=== PATIENT | female | born 1955 | race Caucasian/White ===

== ENCOUNTER 2018-06-16 16:54 | Observation (INO) ==
[2018-06-16] MEDS ORDERED: Isovue-370 500 ML INFUS..BTL IV ONE (18:30)
[2018-06-16 18:54] LABS: Basophils # 0.1 K/mcL (0.0-0.2); Basophils % 0.5 %; Eosinophils # 0.2 K/mcL (0.0-0.6); Eosinophils % 1.8 %; Hemoglobin 10.6 g/dL (11.5-15.4); Immature Granulocytes % 0.5 % (0-4); Lymphocytes # 2.2 K/mcL (0.6-4.6); Lymphocytes % 21.1 %; Mean Corpuscular HGB Conc 32.1 g/dL (31.6-35.5); Mean Corpuscular Hemoglobin 30.5 pg (28.0-33.3); Mean Corpuscular Volume 95.1 fL (83.0-100.0); Mean Platelet Volume 9.8 fL (9.4-12.4); Monocytes # 0.9 K/mcL (0.0-1.3); Monocytes % 8.8 %; Platelet Count 289 K/mcL (140-400); Red Blood Count 3.47 M/mcL (3.82-4.97); Red Cell Distribution Width 13.6 % (11.5-14.5); Segmented Neutrophils % 67.3 %
[2018-06-16 19:02] LABS: INR 1.1; Prothrombin Time 11.9 Seconds (9.4-12.1)
[2018-06-16 19:14] LABS: Calcium 8.7 mg/dL (8.6-10.3); Potassium 3.8 mEq/L (3.5-5.1)
[2018-06-16 19:19] LABS: Troponin I 0.05 ng/mL (< 0.04)
[2018-06-16] MEDS ORDERED: Aspirin 325 MG TABLET PO ONE (19:23)
--- NOTE | 2018-06-16 19:23 | Emergency Department Note ---
Disposition Clinical Impression: Chest pain Qualifiers: Chest pain type: unspecified Qualified Code(s): R07.9 - Chest pain, unspecified Disposition: Admitted As Inpatient Condition: Good Referrals: Nahun Cassidy DO [Primary Care Provider] - Forms: ED Satisfaction Letter Time of Disposition: 20:56 General Adult HPI - General Chief complaint: ED Extremity Problem,Nontraumatic Stated complaint: RIght knee pain/sob/kavin/low O2 sat Time Seen by Provider: 06/16/18 18:06 Source: patient Mode of arrival: ambulatory Limitations: no limitations Nursing Notes Reviewed: Yes Vital Signs Reviewed: Yes - History of Present Illness HPI Narrative: 62 year old female chaunceynets ot the ED with complaints of RLE pain and most recently had surgery for a replacement recently and states that she has ahd increased swelling and aheaviness in her chest. Daryn states that in triage she was hypoxic to 70s and that this happened to her during her evlaution for her knee replacement and she required 5LNC at that time. She does not have COPD and does not smoke or use inhalers or supplemental ozygenation at home. Daryn states that the heaviness is inthe mid chest and does not radiate. Daryn dnies cough or fevers or hemoptypsis. RLE swelling is moderate s/p surgery although homans (-) Pain Scale: 10 - Related Data Home Medications Medication Instructions Recorded Confirmed ALPRAZolam [Xanax 0.5 MG Tablet] 0.5 mg PO TID PRN 04/27/16 10/22/16 DULoxetine [Cymbalta] 30 mg PO DAILY 04/27/16 10/22/16 Lisinopril [Zestril] 40 mg PO DAILY 04/27/16 10/22/16 cloNIDine HCl [CloNIDine HCl] 0.1 mg PO BID PRN 04/27/16 10/22/16 Amitriptyline [Elavil] 25 - 50 mg PO HS 10/22/16 10/22/16 Omeprazole [PriLOSEC] 20 mg PO DAILY 10/22/16 10/22/16 Previous Rx's Medication Instructions Recorded Clindamycin [Cleocin] 150 mg PO Q6HR #7 capsule 10/22/16 Allergies Allergy/AdvReac Type Severity Reaction Status Date / Time No Known Allergies Allergy Verified 04/07/17 10:35 Constitutional: Denies: fever, chills, weakness, weight change Eyes: Denies: eye pain, eye discharge, vision change ENT ED: Denies: ear pain, throat pain, dental pain, hearing loss, epistaxis, congestion, dysphagia Cardiovascular: Reports: chest pain. Denies: palpitations, dyspnea on exertion, edema, syncope Respiratory: Denies: cough, dyspnea, wheezes, hemoptysis, stridor Gastrointestinal: Denies: abdominal pain, nausea, vomiting, diarrhea, constipation, hematemesis, melena, hematochezia Genitourinary: Denies: dysuria, frequency, hematuria, discharge Musculoskeletal: Reports: as per HPI, other (leg pain and swelling). Denies: back pain, neck pain, arthralgia, myalgia Integumentary: Denies: rash, abrasion, lesions Neurological: Denies: headache, weakness, numbness, paresthesias, confusion, abnormal gait, vertigo Psychiatric: Denies: anxiety, depression, suicidal thoughts, homicidal thoughts, auditory hallucinations, visual hallucinations Endocrine: Denies: fatigue Hematological/Lymphatic: Denies: easy bleeding, easy bruising Allergic/Immunologic: Denies: facial swelling, urticaria Past Medical History - Past Medical History Medical history: Reports: fibromyalgia, GERD, hypertension, migraine Surgical history: Reports: hysterectomy, orthopedic, other Psychiatric history: Reports: depression - Social History Smoking Status: Never smoker Smokeless Tobacco Status: No Alcohol use: Reports: none Drug use: Reports: none Physical Exam - General Limitations: physical limitation General appearance: alert, in no apparent distress - Head Head exam: atraumatic, normocephalic, normal inspection - Eye Eye exam: Present: normal appearance, PERRL, EOMI - Expanded Eye Exam Pupils: Bilateral: reactive - ENT ENT exam: normal exam, normal oropharynx, mucous membranes moist - Expanded ENT Exam External ear exam: Present: normal external inspection Mouth exam: Present: normal external inspection Teeth exam: Present: normal inspection Throat exam: Present: normal inspection - Neck Neck exam: Present: normal inspection, full ROM, trachea midline - Chest Chest inspection: Present: normal inspection, symmetric chest wall rise - Respiratory Respiratory exam: Present: normal lung sounds bilaterally - Cardiovascular Cardiovascular exam: Present: regular rate, normal rhythm, normal heart sounds - Abdominal Exam Abdominal exam: Present: soft, Non-Tender. Absent: tenderness, distention, guarding, rebound, rigidity - Extremities Exam Extremities exam: Present: normal inspection, full ROM. Absent: tenderness, pedal edema - Expanded Upper Extremity Exam Shoulder exam: Present: normal inspection, full ROM Arm exam: Present: normal inspection, full ROM Elbow exam: Present: normal inspection, full ROM Forearm/Wrist exam: Present: normal inspection, full ROM Hand exam: Present: normal inspection, full ROM Vascular exam: Normal: capillary refill, radial pulse - Expanded Lower Extremity Exam Hip/Pelvis exam: Present: normal inspection, full ROM Upper leg exam: Present: normal inspection, full ROM 1 - swollen, post surgical scar Knee exam: Present: normal inspection, full ROM Lower leg exam: Present: normal inspection, full ROM Ankle exam: Present: normal inspection, full ROM Foot/toe exam: Present: normal inspection, full ROM Neurovascular/Tendon exam: Absent: motor deficit, sensory deficit, tendon deficit - Back Exam Back exam: Present: normal inspection, full ROM. Absent: tenderness - Neurological Exam Neurological exam: Present: alert, oriented X3 - Expanded Neurological Exam Patient oriented to: Present: person, place, time Coma Scale Eye Opening: Spontaneous Coma Scale Motor Response: Obeys Commands Coma Scale Verbal Response: Oriented Coma Scale Total: 15 - Psychiatric Psychiatric exam: Present: normal affect, normal mood - Skin Skin exam: Present: warm, dry, intact, normal color Course Course Narrative: we will do a cardiac workup and US with CTA chest to rule out PE - Reevaluation(s) Reevaluation #1: updated patinet and they are agreeable to plan Time: 20:56 - Consultations Consultation #1: dsicussed case with Dr. ontiveros and he accepts jimmienet to his service Time: 20:56 Vital Signs Temperature 98.7 F 06/16/18 17:37 Pulse Rate 97 06/16/18 17:37 Respiratory Rate 16 06/16/18 17:37 Blood Pressure 97/65 06/16/18 17:37 O2 Sat by Pulse Oximetry 94 06/16/18 17:37 Temperature 98.7 F 06/16/18 17:37 Pulse Rate 97 06/16/18 17:37 Respiratory Rate 20 06/16/18 18:35 Blood Pressure 97/65 06/16/18 17:37 O2 Sat by Pulse Oximetry 96 06/16/18 18:35 Oxygen Delivery Oxygen Delivery Room Air Medical Decision Making - Medical Records Medical records reviewed: Yes I reviewed the patient's medical records. - Lab Data Lab results reviewed: Yes I reviewed the patient's lab results. Result diagrams: 06/16/18 18:35 06/16/18 18:35 Lab Results 06/16/18 06/16/18 06/16/18 Range/Units 18:35 18:35 18:35 WBC 10.4 (4.3-11.1) K/mcL RBC 3.47 L (3.82-4.97) M/mcL Hgb 10.6 L (11.5-15.4) g/dL Hct 33.0 L (35.3-44.9) % MCV 95.1 (83.0-100.0) fL MCH 30.5 (28.0-33.3) pg MCHC 32.1 (31.6-35.5) g/dL RDW 13.6 (11.5-14.5) % Plt Count 289 (140-400) K/mcL MPV 9.8 (9.4-12.4) fL Immature Gran % 0.5 (0-4) % Seg Neutrophils % 67.3 % Lymphocytes % 21.1 % Monocytes % 8.8 % Eosinophils % 1.8 % Basophils % 0.5 % Neutrophils # 7.0 (1.6-8.9) K/mcL Lymphocytes # 2.2 (0.6-4.6) K/mcL Monocytes # 0.9 (0.0-1.3) K/mcL Eosinophils # 0.2 (0.0-0.6) K/mcL Basophils # 0.1 (0.0-0.2) K/mcL PT 11.9 (9.4-12.1) Seconds INR 1.1 APTT 30.0 (26.0-36.0) Seconds Sodium 139 (136-145) mEq/L Potassium 3.8 (3.5-5.1) mEq/L Chloride 103 (98-107) mEq/L Carbon Dioxide 30 H (23-29) mEq/L BUN 17 (8-23) mg/dL Creatinine 1.20 (0.60-1.20) mg/dL Est GFR ( Amer) 55 L (> 60) Est GFR (Non-Af Amer) 46 L (> 60) BUN/Creatinine Ratio 14 (6-26) Glucose 98 (70-105) mg/dL Calculated Osmolality 290 (280-300) Calcium 8.7 (8.6-10.3) mg/dL Troponin I 0.05 H* (< 0.04) ng/mL - Radiology Data Radiology results reviewed: Yes I reviewed the patient's radiology results. - EKG Data EKG #1 EKG attestation: Yes I reviewed and interpreted this EKG. EKG results narrative: NSR with rate of 94. NO STEMI. St-T nonspecific abnormalities without depression or inversion, mostly flattening. no cahnge from 10/19/16. [id number]
--- NOTE | 2018-06-17 00:25 | Internal Med History&Physical ---
<Eh Chaudhary T - Last Filed: 06/17/18 03:09> Date of Encounter: 06/17/18 Time of Encounter: 00:20 Internal Medicine - H&P: HPI Chief complaint: SOB, R Knee pain Admitted From: Home History of present illness: Ms. Celeste is a 62 year old female here SOB and elevated troponinx1 of .05. Patient reports that she had knee surgery last Wed after which she experienced O2 saturation in 70-80s. She was told it was due to her pain medicatioAtns lowering her respiration. She was discharged after her O2 sats stabilized. Earlier today during a nurse visit she experienced another all in O2 sat of 70- 80s while walking for a few minutes. Patient states she has episodes of difficulty breathing while at rest. At ED today patient had an elevated troponin of 0.05 x1, however she does not report any chest pain or palpitations. Her EKG did not show any ST changes. She has significant family history of cardiovsacular disease with her mother, father, and brother having heart attacks. Patient reports she has been seen by [facility] cardiology for an episode of afib last year which converted back to sinus rthym without any intervention. She also had an echo and catheter done at that hospital. We do not currently have the reports from these hospitals. Patient reports that she did not receive a stent, is not on m etoprolol, amiodarone, or any other heart med, does not have elevated cholesterol, is not diabetic. Patient is morbidly obese. She needs to sleep elevated otherwise she has SOB, however she states her cardiolgist has never diagnosed her with CHF. Patient also denies having COPD or other lung path ology. She is a nonsmoker. Chest CT showed normal heart sillouhete and CTA did not reveal PE, however showed mild atelectasis. Patient denies recent fever, nausea, vomitting, abdominal pain, cough, recent sick contacts. Past Med Surg Social Fam HX - Past Medical History Medical history: fibromyalgia, GERD, hypertension, migraine Additional medical history: Lumbar stenosis and buldging discs Psychiatric history: depression - Past Surgical History Surgical History: hysterectomy, orthopedic, other Additional surgical history: hyst. gb. lap band - Social History Smoking Status: Never smoker Smokeless Tobacco Status: No Alcohol use: none Drug use: none - Family History Father Hx Family Cardiac Disorders: Yes (HTN) Hx Family Neuromuscular Disorders: Yes (Stroke) Mother Hx Family Cardiac Disorders: Yes (HTN) Hx Family Cancer: Yes (uterine) Hx Family Endocrine Disorder: Yes Hx Family Neurologic Disorders: Yes (stroke) Internal Medicine - H&P: Meds ALPRAZolam [Xanax 0.5 MG Tablet] 0.5 mg PO TID PRN 04/27/16 [History] Lisinopril [Zestril] 10 mg PO DAILY 04/27/16 [History] Amitriptyline [Elavil] 50 mg PO HS PRN 10/22/16 [History] Baclofen [Lioresal] 15 mg PO TID 06/16/18 [History] Cyclobenzaprine HCl 10 mg PO Q8H PRN 06/16/18 [History] Duloxetine HCl [Cymbalta] 60 mg PO DAILY 06/16/18 [History] Gabapentin [Neurontin] 300 mg PO TID 06/16/18 [History] Omeprazole [PriLOSEC] 20 mg PO DAILY 06/16/18 [History] Oxycodone HCl/Acetaminophen [Percocet 10-325 mg Tablet] 1 tab PO Q4-6H PRN 06/16/18 [History] Propranolol [Inderal] 20 mg PO DAILY 06/16/18 [History] hydroCHLOROthiazide [Hydrochlorothiazide] 12.5 mg PO DAILY 06/16/18 [History] Allergy/AdvReac Type Severity Reaction Status Date / Time No Known Allergies Allergy Verified 10/22/16 10:35 All Systems PM: A 10-system review of systems was performed and is negative for pertinent findings except as documented above in the HPI. - Constitutional Constitutional: fatigue, no chills, no fever(s) - Cardiovascular Cardiovascular ROS IM: dyspnea, dyspnea on exertion, no chest pain, no diaphoresis - Constitutional Vitals: Temp Pulse Resp BP Pulse Ox 97.9 F 96 16 118/62 98 06/16/18 21:52 06/16/18 21:52 06/16/18 21:52 06/16/18 21:52 06/16/18 21:52 General appearance: Present: A&O X 3, morbidly obese Exam: . - Head Head exam: Present: atraumatic, normal inspection - Eye Eye exam: Present: EOMI, normal appearance. Absent: conjuntiva pink - Neck Neck exam general surgery: Present: supple, trachea midline - Respiratory Respiratory exam: Present: CTAB. Absent: respiratory distress (patient on 2L oxygen) - Cardiovascular Cardiovascular exam: Present: RRR, +S1, +S2 Additional comments: No sternal tenderness upon palpation - GI/Abdominal GI/Abdominal exam: Present: soft. Absent: tenderness - Extremities Exam Extremities exam: Present: normal capillary refill, warm. Absent: mottling - Neurological Exam Neurological exam: Present: alert, altered, no focal deficits - Psychiatric Psychiatric exam: Present: normal affect - Skin Skin exam: Present: dry, intact, warm Internal Med - H&P Results - Labs CBC & Chem 7: 06/16/18 18:35 06/17/18 01:38 Labs: Short CBC 06/16/18 Range/Units 18:35 WBC 10.4 (4.3-11.1) K/mcL Hgb 10.6 L (11.5-15.4) g/dL Hct 33.0 L (35.3-44.9) % Plt Count 289 (140-400) K/mcL Neutrophils # 7.0 (1.6-8.9) K/mcL BMP 06/16/18 18:35 Sodium 139 Potassium 3.8 Chloride 103 Carbon Dioxide 30 H BUN 17 Creatinine 1.20 Glucose 98 Calcium 8.7 Cardiac Enzymes 06/16/18 Range/Units 18:35 Troponin I 0.05 H* (< 0.04) ng/mL - Impressions ITS Impressions Chest CTA 06/16/18 18:30 IMPRESSION: 1. No evidence of a pulmonary embolism or parenchymal lung infiltrate. Minimal atelectasis is noted in the right middle lobe and lingula. D/ / 06/16/2018 20:05:09 Corby Sanchez MD / [facility] Interpreting Provider: Corby Sanchez MD Chest X-Ray 06/16/18 18:33 IMPRESSION: 1. Low lung volumes. D/ / Corby Sanchez MD / Corby Sanchez MD Interpreting Provider: Corby Sanchez MD - Assessment and plan (1) Acute respiratory failure with hypoxia Current Visit: Yes Status: Acute Assessment and plan: 62 YO F presenting with multiple episodes of SOB at rest and with exertion with hypoxia following knee surgery last tue. Patient does not have any anticoagulation perscribed post-op. Patient sleeps with several pillows elevated. Has elevated troponin at ED of 0.05 with significant family history of heart disease, but has negative EKG. CTA negative for PE with negative LE doppler. Lungs were clear to auscultation and CXR shows low lung volumes but no acute lung pathology such as effusions of atelectasis that could explain low O2 Sat. Considering CHF vs [place] give patients cardiac risk factors. - echo tomorrow to check cardiac status - A1C and cholesterol tomorrow to assess more cardiac risk factors - trending troponins - DVT PPX 5000IU heparin BID - CBC and BMP tomorrow (2) Troponin level elevated Current Visit: Yes Status: Acute Assessment and plan: Troponins trending down .05 to .03. Negative EKG. Most likely due to demand ischemia. - echo tomorrow to check cardiac status - A1C and cholesterol tomorrow to assess more cardiac risk factors (3) Knee pain, right Current Visit: Yes Status: Acute Assessment and plan: Recent surgery last tue - Gave patient 5 percocet Q6 PRN for pain Qualifiers: Chronicity: acute Qualified Code(s): M25.561 - Pain in right knee - Time Spent With Patient Total time spent is greater than 50% in coordination of care (as documented) at patient's floor/unit and/or counseling patient: <Donald Machado - Last Filed: 06/17/18 07:52> Date of Encounter: 06/17/18 Internal Medicine - H&P: HPI History of present illness: Ms. Celeste is a 62 year old female All Systems PM: A 10-system review of systems was performed and is negative for pertinent findings except as documented above in the HPI. - Constitutional Vitals: Temp Pulse Resp BP Pulse Ox 98.3 F 82 16 110/74 90 06/17/18 07:11 06/17/18 07:11 06/17/18 07:11 06/17/18 07:11 06/17/18 07:11 Internal Med - H&P Results - Labs CBC & Chem 7: 06/17/18 06:02 06/17/18 01:38 Labs: Short CBC 06/16/18 06/17/18 Range/Units 18:35 06:02 WBC 10.4 9.0 (4.3-11.1) K/mcL Hgb 10.6 L 9.5 L (11.5-15.4) g/dL Hct 33.0 L 29.3 L (35.3-44.9) % Plt Count 289 253 (140-400) K/mcL Neutrophils # 7.0 6.1 (1.6-8.9) K/mcL BMP 06/16/18 06/17/18 18:35 01:38 Sodium 139 139 Potassium 3.8 3.7 Chloride 103 103 Carbon Dioxide 30 H 29 BUN 17 15 Creatinine 1.20 0.93 Glucose 98 114 H Calcium 8.7 8.6 Cardiac Enzymes 06/16/18 06/17/18 06/17/18 Range/Units 18:35 01:38 06:02 Troponin I 0.05 H* 0.03 < 0.03 (< 0.04) ng/mL Liver Function 06/17/18 Range/Units 01:38 Total Bilirubin 0.5 (0.3-1.0) mg/dL AST 23 (13-39) Units/L ALT 14 (7-52) Units/L Alkaline Phosphatase 79 (34-104) Units/L Albumin 3.1 L (3.5-5.7) g/dL - Impressions ITS Impressions Chest CTA 06/16/18 18:30 IMPRESSION: 1. No evidence of a pulmonary embolism or parenchymal lung infiltrate. Minimal atelectasis is noted in the right middle lobe and lingula. D/ / 06/16/2018 20:05:09 Corby Sanchez MD / [facility] Interpreting Provider: Corby Sanchez MD Chest X-Ray 06/16/18 18:33 IMPRESSION: 1. Low lung volumes. D/ / Corby Sanchez MD / Corby Sanchez MD Interpreting Provider: Corby Sanchez MD - Time Spent With Patient Total time spent is greater than 50% in coordination of care (as documented) at patient's floor/unit and/or counseling patient: - Attending Attestation I saw and evaluated the patient. I reviewed the residents note, performed my own physical examination and agree with findings and plan as documented in the residents note. Patient seen and examined on 06/17/18. Patient had recent surgery on her right knee, and developed chest heaviness prompting her ER visit. PE and DVT exams were negative, however patient did have a slightly elevated troponin of 0.05. EKG negative for ST changes. Patient denies chest pain. Will proceed to trend troponins, and obtain an echo in the AM. Patient agreeable to plan.
[2018-06-17] MEDS: *HR* OxyCODONE/APAP 5/325 TABLET PO PRN ×2 (01:22→12:56)
[2018-06-17 02:09] LABS: INR 1.1; Prothrombin Time 12.3 Seconds (9.4-12.1)
[2018-06-17 02:21] LABS: Alanine Aminotransferase 14 Units/L (7-52); Albumin 3.1 g/dL (3.5-5.7); Albumin/Globulin Ratio 1.2 (1.1-2.2); Alkaline Phosphatase 79 Units/L (34-104); Aspartate Amino Transferase 23 Units/L (13-39); BUN/Creatinine Ratio 16 (6-26); Bilirubin,Total 0.5 mg/dL (0.3-1.0); Blood Urea Nitrogen 15 mg/dL (8-23); Calcium 8.6 mg/dL (8.6-10.3); Carbon Dioxide 29 mEq/L (23-29); Chloride 103 mEq/L (98-107); Cholesterol 115 mg/dL (< 200); Globulin 2.5 g/dL (2.4-3.5); Glucose 114 mg/dL (70-105); Magnesium 1.8 mg/dL (1.6-2.6); Osmolality,Calculated 290 (280-300); Potassium 3.7 mEq/L (3.5-5.1); Sodium 139 mEq/L (136-145); Total Protein 5.6 g/dL (6.4-8.9); eGFR For Non-African Americans > 60 (> 60)
[2018-06-17] MEDS ORDERED: *HR* Heparin 5,000 UNIT/ML VIAL SQ SCH (06:00)
[2018-06-17 06:17] LABS: Basophils % 0.3 %; Eosinophils # 0.2 K/mcL (0.0-0.6); Hematocrit 29.3 % (35.3-44.9); Hemoglobin 9.5 g/dL (11.5-15.4); Immature Granulocytes % 0.4 % (0-4); Lymphocytes # 1.8 K/mcL (0.6-4.6); Lymphocytes % 20.4 %; Mean Corpuscular HGB Conc 32.4 g/dL (31.6-35.5); Mean Corpuscular Hemoglobin 30.4 pg (28.0-33.3); Mean Corpuscular Volume 93.9 fL (83.0-100.0); Mean Platelet Volume 9.3 fL (9.4-12.4); Monocytes # 0.8 K/mcL (0.0-1.3); Monocytes % 9.3 %; Neutrophils # 6.1 K/mcL (1.6-8.9); Platelet Count 253 K/mcL (140-400); Red Blood Count 3.12 M/mcL (3.82-4.97); Red Cell Distribution Width 13.5 % (11.5-14.5); Segmented Neutrophils % 67.6 %
[2018-06-17 06:34] LABS: Troponin I < 0.03 ng/mL (< 0.04)
[2018-06-17 06:46] LABS: Chol/HDL Ratio 2.8 (0-4.9); Cholesterol 112 mg/dL (< 200); HDL Cholesterol 40 mg/dL (40-59); LDL Cholesterol,Calculated 58 mg/dL (0-99); Triglycerides 72 mg/dL (< 150)
[2018-06-17 07:26] LABS: Estimated Average Glucose 134 mg/dl; Hemoglobin A1C 6.3 %
[2018-06-17] MEDS ORDERED: Perflutren Lipid Microsphere 1.3 ML in 0.9 % Sodium Chloride 8.7 ML IVP ONE (08:33)
[2018-06-17] MEDS ORDERED: ALPRAZolam 0.5 MG TABLET PO PRN (11:22)
--- NOTE | 2018-06-17 12:01 | Internal Med Progress Note ---
Hospitalist Progress Note - Encounter Date of Encounter: 06/17/18 Time of Encounter: 11:58 - Subjective Interval History: Patient denies any dyspnea at this time. She reports she is able to ambulate around the room without shortness of breath. I have discussed plan of care including ambulating throughout the hallway with and without oxygen to monitor for hypoxic events with activity. TTE is pending. - Exam Vitals: Temp Pulse Resp BP Pulse Ox 98.6 F 90 16 124/73 92 06/17/18 11:31 06/17/18 11:31 06/17/18 11:31 06/17/18 11:31 06/17/18 11:31 Exam: PHYSICAL EXAMINATION: GENERAL: The patient is an elderly obese female, NAD, and O 3 HEENT: Head is normocephalic and atraumatic. Extraocular muscles are intact. Pupils are equal, round, and reactive to light and accommodation. NECK: Supple. No carotid bruits. No lymphadenopathy or thyromegaly. LUNGS: Clear to auscultation B/L AP and L. HEART: Regular rate and rhythm, S1, S2 without murmur. ABDOMEN: Soft, nontender, and nondistended. Positive bowel sounds. No hepatosplenomegaly was noted. EXTREMITIES: Without any cyanosis, clubbing, rash, lesions or edema. NEUROLOGIC: Without facial droop or slurred speech or focal deficits SKIN: No ulceration or induration present. - Assessment and Plan (1) Troponin level elevated Current Visit: Yes Status: Acute Assessment and Plan: Troponins trending down .05 to .03. Negative EKG. Most likely due to demand ischemia. - Echocardiogram pending -Cholesterol WNL -A1c is 6.3; dx prediabetes (2) Knee pain, right Current Visit: Yes Status: Acute Assessment and Plan: Recent surgery last wed Pain persists but is improving Continue 5mg percocet Q6 PRN for pain (3) Acute respiratory failure with hypoxia Current Visit: Yes Status: Acute Assessment and Plan: 62 YO F presenting with multiple episodes of SOB at rest and with exertion with hypoxia following knee surgery last wed. Patient does not have any anticoagulation perscribed post-op. Patient sleeps with several pillows elevated. Has elevated troponin at ED of 0.05 with significant family history of heart disease, but has negative EKG. CTA negative for PE with negative LE doppler. Lungs were clear to auscultation and CXR shows low lung volumes but no acute lung pathology such as effusions of atelectasis that could explain low O2 Sat. Considering CHF vs [place] give patients cardiac risk factors. - echo tomorrow to check cardiac status - A1C and cholesterol tomorrow to assess more cardiac risk factors - troponins tending down - DVT PPX 5000IU heparin BID - CBC and BMP tomorrow - TTE pending; d/c dependent upon results and patients ability to ambulate unit without hypoxia - Time Spent with Patient Total time spent is greater than 50% in coordination of care (as documented) at patient's floor/unit and/or counseling patient: less than 15 minutes Plan of Care Discussed with: patient Internal Medicine: Result - Labs CBC & Chem 7: 06/17/18 06:02 06/17/18 01:38 Labs: Short CBC 06/16/18 06/17/18 Range/Units 18:35 06:02 WBC 10.4 9.0 (4.3-11.1) K/mcL Hgb 10.6 L 9.5 L (11.5-15.4) g/dL Hct 33.0 L 29.3 L (35.3-44.9) % Plt Count 289 253 (140-400) K/mcL Neutrophils # 7.0 6.1 (1.6-8.9) K/mcL BMP 06/16/18 06/17/18 18:35 01:38 Sodium 139 139 Potassium 3.8 3.7 Chloride 103 103 Carbon Dioxide 30 H 29 BUN 17 15 Creatinine 1.20 0.93 Glucose 98 114 H Calcium 8.7 8.6 Cardiac Enzymes 06/16/18 06/17/18 06/17/18 Range/Units 18:35 01:38 06:02 Troponin I 0.05 H* 0.03 < 0.03 (< 0.04) ng/mL Liver Function 06/17/18 Range/Units 01:38 Total Bilirubin 0.5 (0.3-1.0) mg/dL AST 23 (13-39) Units/L ALT 14 (7-52) Units/L Alkaline Phosphatase 79 (34-104) Units/L Albumin 3.1 L (3.5-5.7) g/dL - ABG Interpretation ABG results: PT/INR, D-dimer PT 12.3 Seconds (9.4-12.1) H 06/17/18 01:38 - Impressions Impressions Chest CTA 06/16/18 18:30 IMPRESSION: 1. No evidence of a pulmonary embolism or parenchymal lung infiltrate. Minimal atelectasis is noted in the right middle lobe and lingula. D/ / 06/16/2018 20:05:09 Corby Sanchez MD / [facility] Interpreting Provider: Corby Sanchez MD Chest X-Ray 06/16/18 18:33 IMPRESSION: 1. Low lung volumes. D/ / Corby Sanchez MD / Corby Sanchez MD Interpreting Provider: Corby Sanchez MD Consult Discharge Plan - Plan Referrals: Nahun Cassidy DO [Primary Care Provider] - (2) Knee pain, right Qualifiers: Chronicity: acute Qualified Code(s): M25.561 - Pain in right knee
[2018-06-17 16:19] VITALS: BP 138/80
--- NOTE | 2018-06-17 17:06 | Discharge Summary ---
- NOTES TO OUTPATIENT PROVIDER Notes to Outpatient Provider: Patient admitted with acute respiratory failure and hypoxia. She reports that this has been occurring since right knee surgery a few weeks ago. Etiology remains unclear. Initial troponin elevated at 0.05 however I believe that this was due to demand ischemia and not acute ACS. Repeat troponins negative 2 at 0.03. EKG without acute ST-T wave changes concerning for ischemia. Venous duplex negative for DVT, CTA chest negative for PE. No consolidation or vascular congestion or pulmonary edema on imaging. Echocardiogram grossly normal. Consider interstitial lung disease as etiology remains unclear at this time. May benefit from outpatient pulmonology follow-up. Could also be component of deconditioning S/P surgery. She has been qualified for home oxygen 2 L nasal cannula. She has been instructed to follow- up with PCP within 1 week of discharge. She was able to successfully ambulate around the unit on 2 L nasal cannula without hypoxia or excess fatigue. Orders not resulted at time of discharge: Pending orders 06/16/18 18:33 ECG 12 lead ECG [ECG] Stat Date of Encounter: 06/17/18 Time of Encounter: 17:04 - Discharge Diagnosis (1) Troponin level elevated Priority: Primary Status: Acute Assessment and Plan: Troponins trending down .05 to .03, 0.03 Negative EKG. Most likely due to demand ischemia. - EKG - Echocardiogram grossly normal -Cholesterol WNL - I do not suspect she has acute ACS -A1c is 6.3; dx prediabetes (2) Knee pain, right Priority: Secondary Status: Acute Assessment and Plan: Recent surgery last wed Pain persists but is improving Continue 5mg percocet Q6 PRN for pain Qualifiers: Chronicity: acute Qualified Code(s): M25.561 - Pain in right knee (3) Acute respiratory failure with hypoxia Priority: Secondary Status: Acute Assessment and Plan: 62 YO F presenting with multiple episodes of SOB at rest and with exertion with hypoxia following knee surgery last wed. Patient does not have any anticoagulation perscribed post-op. Patient sleeps with several pillows elevated. Has elevated troponin at ED of 0.05 with significant family history of heart disease, but has negative EKG. CTA negative for PE with negative LE doppler. Lungs were clear to auscultation and CXR shows low lung volumes but no acute lung pathology such as effusions of atelectasis that could explain low O2 Sat. Considering CHF vs MS give patients cardiac risk factors. - echo tomorrow to check cardiac status - A1C and cholesterol tomorrow to assess more cardiac risk factors - troponins tending down - DVT PPX 5000IU heparin BID - CBC and BMP tomorrow - TTE pending; d/c dependent upon results and patients ability to ambulate unit without hypoxia Hospital course: Ms. Celeste is a 62 year old female Patient admitted with acute respiratory failure and hypoxia. She reports that this has been occurring since right knee surgery a few weeks ago. Venous duplex negative for DVT, CTA chest negative for PE. No consolidation or vascular congestion or pulmonary edema on imaging. Echocardiogram grossly normal. Consider interstitial lung disease as etiology remains unclear at this time. May benefit from outpatient pulmonology follow-up. Could also be component of deconditioning S/P surgery. She has been qualified for home oxygen 2 L nasal cannula. She has been instructed to follow-up with PCP within 1 week of discharge. She was able to successfully ambulate around the unit on 2 L nasal cannula without hypoxia or excess fatigue. Discharge discussed with: patient, nurse - Time Spent with Patient Total time spent providing and/or coordinating discharge services: Less than 30 minutes - Discharge Medications Home Medications: ALPRAZolam [Xanax 0.5 MG Tablet] 0.5 mg PO TID PRN 04/27/16 [History] Lisinopril [Zestril] 10 mg PO DAILY 04/27/16 [History] Amitriptyline [Elavil] 50 mg PO HS PRN 10/22/16 [History] Baclofen [Lioresal] 15 mg PO TID 06/16/18 [History] Cyclobenzaprine HCl 10 mg PO Q8H PRN 06/16/18 [History] Duloxetine HCl [Cymbalta] 60 mg PO DAILY 06/16/18 [History] Gabapentin [Neurontin] 300 mg PO TID 06/16/18 [History] Omeprazole [PriLOSEC] 20 mg PO DAILY 06/16/18 [History] Oxycodone HCl/Acetaminophen [Percocet 10-325 mg Tablet] 1 tab PO Q4-6H PRN 06/16/18 [History] Propranolol [Inderal] 20 mg PO DAILY 06/16/18 [History] hydroCHLOROthiazide [Hydrochlorothiazide] 12.5 mg PO DAILY 06/16/18 [History] Allergies/Adverse Reactions: Allergy/AdvReac Type Severity Reaction Status Date / Time No Known Allergies Allergy Verified 10/22/16 10:35 Date of admission: 06/16/18 21:14 Primary care physician: Nahun Cassidy DO Discharging clinician: Mandeep Devlin Anticipated date of discharge: 06/17/18 - Constitutional Vitals: Temp Pulse Resp BP Pulse Ox 98.4 F 94 17 138/80 98 06/17/18 16:18 06/17/18 16:18 06/17/18 16:18 06/17/18 16:18 06/17/18 16:18 General appearance: Present: A&O X 3, morbidly obese Exam: PHYSICAL EXAMINATION: GENERAL: The patient is an elderly obese female, NAD, and O 3 HEENT: Head is normocephalic and atraumatic. Extraocular muscles are intact. Pupils are equal, round, and reactive to light and accommodation. NECK: Supple. No carotid bruits. No lymphadenopathy or thyromegaly. LUNGS: Clear to auscultation B/L AP and L. HEART: Regular rate and rhythm, S1, S2 without murmur. ABDOMEN: Soft, nontender, and nondistended. Positive bowel sounds. No hepatosplenomegaly was noted. EXTREMITIES: Without any cyanosis, clubbing, rash, lesions or edema. NEUROLOGIC: Without facial droop or slurred speech or focal deficits SKIN: No ulceration or induration present. - Patient Status Disposition: Home, Self-Care Condition: Good Functional capacity at discharge: independent ambulation Overall status at discharge: patient is not back to baseline - Discharge Instructions Instructions: Chest Pain (DC), Acute Respiratory Distress Syndrome (DC) Follow Up With: Nahun Cassidy DO [Primary Care Provider] - (Please call office on Tuesday to schedule follow up appointment for 7 days.) - Diet and Activity Activity: increase activity as tolerated, resume usual activities as tolerated, wear oxygen at all times, wear oxygen at night Diet: diabetic diet, low fat, low cholesterol, low salt diet
--- NOTE | 2018-06-19 13:07 | Electrocardiograph Report ---
[place] [id number] Test Date: 2018-06-16 Pat Name: Bhakti Celeste Department: [id number] Room: [facility] Gender: F [employer]: : [id number] Requested By: Patience Beck Order Number: [id number] Reading MD: Aretha Harvey Measurements Intervals [place] Rate: 94 P: 44 W[place]: 140 QRS: 36 QRSD: 90 T: 56 QT: 346 QTc: 433 Interpretive Statements Sinus rhythm Nonspecific T abnormalities Electronically Signed On 06-19-2018 13:05:47 EST by Aretha Harvey
== END 2018-06-17 18:20 | disposition home or self-care (01) ==
LOC: 3BNU 16:54 → EMEROOARM 16:54 → 3BNU 21:18
PROVIDERS: ADMIT Family Medicine; ATTEND Family Medicine